=== PATIENT | male | born 1970 | race Two or more races ===

== ENCOUNTER 2017-10-22 20:22 | Emergency (ER) | payer OTHER ==
[~2017-10-22] VITALS: Ht 170.2 cm; Wt 75.0 kg
[2017-10-22 20:26] VITALS: BP 145/92
[2017-10-22] MEDS ORDERED: LIDOCAINE 1%, 20ML SQ ONE (21:00)
== END 2017-10-22 21:44 | disposition home or self-care (01) ==
LOC: ED 21:35
DX: L05.01 Pilonidal cyst with abscess (principal)
CPT/HCPCS: 10080; 99284